=== PATIENT | female | born 1955 ===

== ENCOUNTER 2016-12-17 02:22 | Emergency (ER) | payer BC, OTHER ==
[2016-12-17 02:33] VITALS: BP 145/80
[2016-12-17] MEDS ORDERED: Ondansetron 4 MG/2 ML SDV IVPUSH ONE (02:51)
[2016-12-17] MEDS ORDERED: HYDROmorphone 0.5 MG/0.5 ML Syringe IVPUSH ONE (02:51)
--- NOTE | 2016-12-17 02:51 | EDM.PDOC ---
ED HPI GENERAL MEDICAL PROBLEM - General Chief Complaint: ENT Problem Stated Complaint: THROAT HURTS Time Seen by Provider: 12/17/16 02:42 Source of Information: Reports: Patient History Limitations: Reports: No Limitations - History of Present Illness INITIAL COMMENTS - FREE TEXT/NARRATIVE: 61-year-old female presents to the ED with unusual complaint of severe sore throat worse on the right as compared to the left. She reports that she was visiting down [facility] last week and upon return last Sunday noted to develop a sore throat. On Sunday she was to go to work but felt that her throat was so sore she phoned in sick. She went to the doctor that day and a prescription swab was apparently done and she was started on a Z-Ziyad. She was no better and went back to next day because of increasing pressure sensation in her throat and inability to lie down. Some subsequently she developed inability to swallow or eat or drink. She feels choking sensation if she lies flat. Severe pain right lateral throat and neck if she tries to swallow or drink or eat. She did get down a bowl of soup yesterday but otherwise had very little oral intake in the last 4 days. She was started on a course of prednisone 20 mg a day on Sunday 4 days ago and has taken 1 daily and she thought perhaps it was helping a wee bit. She can't sleep because she can't lie flat. She still has her tonsils in place. Onset: Gradual Onset Date: 12/12/16 Duration: Day(s):, Getting Worse Location: Reports: Neck (Right side of neck and throat.) Quality: Reports: Ache Severity: Moderate Improves with: Reports: None Worsens with: Reports: Other Context: Denies: Activity (Trying to eat or swallow.), Exercise, Lifting, Sick Contact, Trauma, Other Associated Symptoms: Reports: Cough, Fever/Chills, Malaise, Weakness (Dizzy when she stands up generalized weakness), Other. 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: NSAIDS (Motrin primarily.) Throat Pain Score (Numeric/FACES): 9 - Related Data Allergies Allergy/AdvReac Type Severity Reaction Status Date / Time Penicillins Allergy Hives Verified 12/17/16 03:06 Home Meds: Home Meds Ascorbate Calcium [Vitamin C] 1,000 mg PO DAILY 12/17/16 [History] Cholecalciferol (Vitamin D3) [Delta D3] 400 unit PO DAILY 12/17/16 [History] Diclofenac Sodium [Voltaren 1% Gel] 1 dose TOP ASDIRECTED 12/17/16 [History] Levothyroxine Sodium [Synthroid] 100 mcg PO DAILY 12/17/16 [History] Prednisone [IJD: predniSONE] 20 mg PO DAILY 12/17/16 [History] atorvaSTATin [Lipitor] 20 mg PO DAILY 12/17/16 [History] Past Medical History Cardiovascular History: Reports: High Cholesterol Endocrine/Metabolic History: Reports: Hypothyroidism - Past Surgical History GI Surgical History: Reports: Cholecystectomy Social & Family History - Tobacco Use Smoking Status *Q: Current Every Day Smoker Years of Tobacco use: 40 Packs/Tins Daily: 0.2 - Recreational Drug Use Recreational Drug Use: No ED ROS ENT - Review of Systems Review Of Systems: See Below Constitutional: Reports: Fever, Malaise, Weakness, Fatigue, Decreased Appetite ( Unable to eat or drink she can't swallow.), Weight Loss. Denies: Chills (Low- grade the last few days no fever.) HEENT: Reports: Throat Pain, Throat Swelling (Severe right side severe right side). Denies: Vertigo Respiratory: Reports: Cough (Harsh productive sounding cough) Cardiovascular: Reports: No Symptoms Endocrine: Reports: No Symptoms GI/Abdominal: Reports: No Symptoms : Reports: No Symptoms Skin: Reports: No Symptoms Neurological: Reports: No Symptoms Psychiatric: Reports: No Symptoms Hematologic/Lymphatic: Reports: No Symptoms Immunologic: Reports: No Symptoms ED EXAM, ENT - Physical Exam Exam: See Below Exam Limited By: No Limitations General Appearance: Alert, WD/WN, Moderate Distress (Seems to be a non-or obvious pain and distress.) Eye Exam: Bilateral Eye: Normal Inspection Ears: Other (Right tympanic membrane is retracted but no middle ear fluid is evident. The left TM is normal.) Mouth/Throat: Hoarse Voice (Mildly hoarse voice.), Peritonsillar Mass (The right glossal palatine fold and soft palate are pushed anteriorly and are mildly erythematous. There is a sense of fullness on palpation of the right side of the neck around the submandibular gland and inferior to this. This area is tender to touch..), Other (The tonsils themselves are barely visible without any exudate.) Head: Atraumatic, Normocephalic Neck: Supple, Other (Very tender to palpation with a sense of fullness on exam) Respiratory/Chest: No Respiratory Distress, Other (Heart sounding cough but lower lung bethea are clear to auscultation percussion without wheezing.) Cardiovascular: Normal Peripheral Pulses, Regular Rate, Rhythm, No Edema, No Murmur GI/Abdominal: Normal Bowel Sounds, Soft, Non-Tender, No Organomegaly Back: Normal Inspection, Full Range of Motion. No: CVA Tenderness (L), CVA Tenderness (R) Extremities: Normal Inspection, Normal Range of Motion, Non-Tender, Normal Capillary Refill Neurological: Alert, Oriented, CN II-XII Intact, Normal Cognition Psychiatric: Normal Affect, Normal Mood Skin: Warm, Dry, Intact, Normal Color, No Rash Course - Vital Signs Last Recorded V/S: Last Vital Signs Temp 36.9 C 12/17/16 02:30 Pulse 97 12/17/16 02:30 Resp 18 12/17/16 02:30 BP 145/80 H 12/17/16 02:30 Pulse Ox 94 L 12/17/16 02:30 - Orders/Labs/Meds Orders: Active Orders 24 hr Category Date Time Status Chest 1V Frontal [CR] Stat Exams 12/17/16 02:52 Taken Soft Tissue Neck w Cont [CT] Stat Exams 12/17/16 02:53 Taken Dextrose 5%-0.9% NaCl [Dextrose 5%-Normal Saline] 1,000 Med 12/17/16 03:00 Active ml IV ASDIRECTED Medication Orders Dextrose/Sodium Chloride (Dextrose 5%-Normal Saline) 1,000 mls @ 999 mls/hr IV ASDIRECTED ANDREW Last Admin: 12/17/16 03:06 Dose: 999 mls/hr Labs: Laboratory Tests 12/17/16 12/17/16 12/17/16 Range/Units 02:55 02:55 02:55 WBC 13.98 H (3.98-10.04) K/mm3 RBC 4.81 (3.98-5.22) M/mm3 Hgb 15.2 (11.2-15.7) gm/L Hct 44.0 (34.1-44.9) % MCV 91.5 (79.4-94.8) fl MCH 31.6 (25.6-32.2) pg MCHC 34.5 (32.2-35.5) g/dl RDW Std Deviation 43.8 (36.4-46.3) fL Plt Count 236 (182-369) K/mm3 MPV 9.7 (9.4-12.3) fl Neutrophils % (Manual) 74 H (40-60) % Band Neutrophils % 0 (0-10) % Lymphocytes % (Manual) 15 L (20-40) % Atypical Lymphs % 5 % Monocytes % (Manual) 6 (2-10) % Eosinophils % (Manual) 0 L (0.7-5.8) % Basophils % (Manual) 0 L (0.1-1.2) Platelet Estimate Adequate Plt Morphology Comment Normal RBC Morph Comment Normal ESR 40 H (0-20) mm/hr Sodium 135 L (136-145) mEq/L Potassium 4.0 (3.5-5.1) mEq/L Chloride 100 (98-107) mEq/L Carbon Dioxide 25 (21-32) mEq/L Anion Gap 14.0 (5-15) BUN 12 (7-18) mg/dL Creatinine 0.9 (0.55-1.02) mg/dL Est Cr Clr Drug Dosing 70.09 mL/min Estimated GFR (MDRD) > 60 (>60) mL/min BUN/Creatinine Ratio 13.3 L (14-18) Glucose 110 (80-115) mg/dL Calcium 9.5 (8.5-10.1) mg/dL Total Bilirubin 1.0 (0.2-1.0) mg/dL AST 17 (15-37) U/L ALT 26 (14-59) U/L Alkaline Phosphatase 80 (46-116) U/L C-Reactive Protein 12.6 H* (<1.0) mg/dL Total Protein 7.7 (6.4-8.2) g/dl Albumin 3.5 (3.4-5.0) g/dl Globulin 4.2 gm/dL Albumin/Globulin Ratio 0.8 L (1-2) Meds: Medications Generic Name Dose Route Start Last Admin Trade Name Freq PRN Reason Stop Dose Admin Dextrose/Sodium Chloride 1,000 mls @ 999 mls/hr 12/17/16 03:00 12/17/16 03:06 Dextrose 5%-Normal Saline IV 999 mls/hr ASDIRECTED ANDREW Administration Discontinued Medications Generic Name Dose Route Start Last Admin Trade Name Freq PRN Reason Stop Dose Admin Hydromorphone HCl 0.5 mg 12/17/16 02:51 12/17/16 03:07 Dilaudid IVPUSH 12/17/16 02:52 0.5 mg ONETIME ONE Administration Clindamycin Phosphate 900 mg/ 106 mls @ 100 mls/hr 12/17/16 03:01 12/17/16 03 :17 Sodium Chloride IV 12/17/16 04:04 100 mls/hr ONETIME ONE Administration Iopamidol 80 ml 12/17/16 03:30 12/17/16 03:31 Isovue-300 (61%) IVPUSH 12/17/16 03:31 80 ml ONETIME ONE Administration Ketorolac Tromethamine 30 mg 12/17/16 02:52 12/17/16 03:07 Toradol IVPUSH 12/17/16 02:53 30 mg ONETIME ONE Administration Ondansetron HCl 4 mg 12/17/16 02:51 12/17/16 03:06 Zofran IVPUSH 12/17/16 02:52 4 mg ONETIME ONE Administration - Radiology Interpretation Free Text/Narrative:: 61-year-old female presents to the ED with severe right-sided throat pain for the last 5 days. She reports she was in [place] and [place] the week prior and upon returning to [place] last Sunday she started to develop a sore throat on December 01. She attended the clinic at [place] on the and was started on a Z-Ziyad which he has completed. She went back the following day due to increased pain and swelling in her throat with inability to eat. She had a choking sensation if she lies flat. She was started on prednisone 20 mg once daily. She attends the ED tonight with worsening of pain in the right side of her throat and neck and inability to lie flat. Feels like she's choking if she lies down and she's been trying to sleep in an easy chair the last 3 days. Not aware of any defined fever. On examination the edition she appears to have anterior protrusion of the right soft palate suggestive of a peritonsillar abscess. The tonsils themselves are barely visible without exudate. She has a fullness and marked pain to palpation along the right undersurface of the mandible and submandibular gland area. Plan she will have CT soft tissue angiogram done of her neck. Routine labs including a sedimentation rate and CRP to be obtained. - Re-Assessments/Exams Free Text/Narrative Re-Assessment/Exam: 12/17/16 04:01 labs are back and reveal an elevated white count at 13.98 with 74 % neutrophils and no bands hemoglobin is 15.2 hematocrit is 44.0 platelets are 236,000. Sedimentation rate is 40. Sodium 135 potassium 4.0.100 bicarbonate 25 and a gap is 14.0 creatinine is 0.9 indicating she is getting adequate fluids in. CRP elevated at 12.6. CT soft tissue of the neck with contrast reveals a mass in the right peritonsillar distribution with abscess present. This is deviating her hypopharynx to the left side. It said travels down to the arytenoid cartilages caudally. There are several areas suggesting necrosis in this area and lymph node enlargement. Rarely it could rigors represent some form of tumor however the history suggests that this is all developed over the last 6 days It is my opinion that she requires surgery to drain this abscess. I will await the radiologist's report in this regard. She is currently receiving clindamycin 900 mg IV. 12/17/16 04:22 V-rad radiologist called with critical finding on this patient . He appreciates the mass in the right hypopharynx deviating the airway and hypopharynx to the left side. He has some concerns of multiple areas of necrotic tissue worrisome for a malignancy. Multiple enlarged lymph nodes around the area as well. He appreciates several areas of necrotic tissue in some of the surrounding lymph nodes which would be more concerning for a malignancy with secondary infection. However the history is suggestive of all of this coming on over the last 6 days and most likely represents a peritonsillar abscess. At any rate she does need ear nose and throat consultation. She wishes to travel to [facility] in [facility] for ear nose and throat consultation. She feels comfortable enough to travel by private vehicle versus the ambulance at this time. I will therefore send her films to [facility] and alert the clinical coordinator. Tentatively she will try and arrange a drop hammer pile driver operator and travel to [place] in the next hour or so. Of note she is feeling improved after IV analgesia. She has nearly completed her clindamycin infusion. 12/17/16 04:37 I have spoken to the clinical coordinator at [facility] and at present unable to talk to the ENT physician on duty due to there being busy. I will send the records and patient will attend the ED when she arrives and appropriate consultation can be arranged. She will be nothing by mouth until after she is seen by ear nose and throat surgeon. 12/17/16 04:55 Patient has found a friend who can drive her to [place]. She is therefore to travel to the emergency room at [facility] in [facility]. I have faxed all of our information including recent labs and CT scan has been sent by PACs. Departure - Departure Time of Disposition: 04:56 Disposition: DC/Tfer to Acute Hospital 02 Condition: Fair Clinical Impression: Peritonsillar abscess - Discharge Information Forms: ED Department Discharge Additional Instructions: Travel to [facility] in [facility] to the emergency department. Their information has been sent by fax to them. They will arrange for appropriate ear , nose and throat consultation and management of your suspected right peritonsillar abscess. - My Orders Last 24 Hours: My Active Orders 12/17/16 02:52 Chest 1V Frontal [CR] Stat 12/17/16 02:53 Soft Tissue Neck w Cont [CT] Stat 12/17/16 03:00 Dextrose 5%-0.9% NaCl [Dextrose 5%-Normal Saline] 1,000 ml IV ASDIRECTED - Assessment/Plan Last 24 Hours: My Active Orders 12/17/16 02:52 Chest 1V Frontal [CR] Stat 12/17/16 02:53 Soft Tissue Neck w Cont [CT] Stat 12/17/16 03:00 Dextrose 5%-0.9% NaCl [Dextrose 5%-Normal Saline] 1,000 ml IV ASDIRECTED
[2016-12-17] MEDS ORDERED: Ketorolac 30 MG/ML SDV IVPUSH ONE (02:52)
[2016-12-17] MEDS ORDERED: Dextrose 5%-0.9% NaCl 1,000 ML IV SCH (03:00)
[2016-12-17] MEDS ORDERED: Clindamycin Phosphate 900 MG in Sodium Chloride 0.9% 100 ML IV ONE (03:01)
[2016-12-17] MEDS ORDERED: Iopamidol 755 Mg/ML 100 ML Bottle IVPUSH ONE (03:14)
[2016-12-17] MEDS ORDERED: Iopamidol 612 MG/ML 150 ML Bottle IVPUSH ONE (03:30)
--- NOTE | 2016-12-18 07:24 | CR ---
Chest: Frontal view of the chest was obtained. Comparison: No prior chest x-ray. Heart size and mediastinum are normal. Lungs are clear but hyperinflated. Bony structures are grossly intact. Impression: 1. Emphysematous change. Nothing acute is identified on frontal chest x-ray. Diagnostic code #2
--- NOTE | 2016-12-18 07:24 | CT ---
CT neck Technique: Multiple axial sections were obtained from above the external auditory canals inferiorly to the lung apices. Intravenous contrast was utilized. Comparison: No previous CT neck exam. Findings: Abnormality identified within the right parapharyngeal soft tissues. This shows soft tissue thickening as well as low density areas. Overall size is about 4.9 cm in craniocaudal dimension. This causes some mass effect upon the adjacent airway pushing it to the left side. Small low density finding noted within the left parapharyngeal soft tissues measuring about 5 mm. Right left parotid and submandibular salivary glands are unremarkable. Scattered degenerative change incidentally noted within the cervical spine. No adenopathy is identified within the neck. Impression: 1. Soft tissue fullness as well as low density within the right parapharyngeal soft tissues. Findings most likely due to phlegmon and abscess although neoplasm can have a similar appearance. 2. Small low-density findings within the left parapharyngeal soft tissues measuring 5 mm with similar differential. 3. Incidental degenerative change within the cervical spine. Diagnostic code #9 Agree with preliminary report issued by [facility] ([facility] preliminary report dictated on 12/17/16, 5:27 AM Central Time)
== END 2016-12-17 05:15 ==
LOC: JD.ED 02:22
DX: J36 Peritonsillar abscess (principal); E78.00 Pure hypercholesterolemia, unspecified; E03.9 Hypothyroidism, unspecified; F17.210 Nicotine dependence, cigarettes, uncomplicated; Z88.0 Allergy status to penicillin; Z79.899 Other long term (current) drug therapy; Z90.49 Acquired absence of other specified parts of digestive tract
CPT/HCPCS: 36415; 70491; 71010; 80053; 85025; 85652; 86140; 96365; 96375; 99285; J1170; J1885; J2405; J7030; J7042; Q9967; 99284